=== PATIENT | female | born 1945 | race Caucasian/White ===

== ENCOUNTER → 2017-06-29 | Outpatient (CLI) | payer MEDICARE ==
[~2017-06-29] MED LIST: ACE500 PO; ATOR20TA22 PO; BECL8.7A6 IH; CHOL2000 PO; IBU200 PO; KET10 PO; NITR0.4T3 SL; OMEP-218 PO; PANT40TA65 PO; PER PO; RANI-324 PO; [UNRECOGNIZED DRUG - OTHER] PO
[2017-06-29 16:57] LABS: PLATELET COUNT, AUTOMATED 197 K/uL (150-450)
== END ==
LOC: LAB 16:33
PROVIDERS: ATTEND Surgery
DX: R10.9 Unspecified abdominal pain (principal)
CPT/HCPCS: 36415; 82040; 82247; 82310; 82374; 82435; 82565; 82947; 83690; 84075; 84132; 84155; 84295; 84450; 84460; 84520; 85025

== ENCOUNTER → 2017-07-20 | Outpatient (CLI) | payer MEDICARE ==
[~2017-07-20] MED LIST changes: +IOPAMIDOL 76% 75 ML INFUS BTL 75 ML ONE; +NS 0.9% 20 ML SDV 40 ML ONE
--- NOTE | 2017-07-20 09:49 | RADIOLOGY IMAGING REPORT ---
[place] [facility] [place] NAME: Donna Mcginnis : 1945 MR: [id number] V: [id number] EXAM DATE: ORDERING PHYSICIAN: WOODY BARRAGAN TECHNOLOGIST: Location: [facility] Patient: Donna Mcginnis : 1945 Visit/Account:[id number] Date of Sevice: 07/20/2017 ABDOMEN/PELVIS W/WO CONTRAST HISTORY: Point pain in right lower quadrant pain TECHNIQUE: Axial images acquired through the abdomen/pelvis both with and without IV contrast.. Bal nal and sagittal reformatting also performed. CONTRAST: 75 mL [id number] COMPARISON: July 30, 2009 FINDINGS: Visualized lung bases: Negative. Hepatobiliary: There are postsurgical changes from a cholecystectomy Spleen: Negative. Adrenals: Negative. Pancreas: Pancreatic divisum Kidneys ureters and bladder: Subcentimeter echodensities in both kidneys likely represent cysts altho ugh are too small to characterize. Again noted is cortical scarring lateral aspect of the mid left k idney with an adjacent calcified lesion that appears unchanged. There is no evidence of hydronephros is, hydroureter or urolithiasis. Urinary bladder is not ideally distended with contrast. The anteri or border the bladder are closely approximates the anterior pelvic wall although appears similar to t he prior study. Genitalia: Hysterectomy GI: There Is a focal narrowing in the distal sigmoid colon this is best seen on axial image 95 of se emery 6. Although this could represent an area of spasm and annular lesion cannot be totally excluded . There is diverticulosis left-sided colon although no CT evidence of acute diverticulitis. . Incidentally noted is a gastric diverticulum at the fundus Vessels/spaces/nodes: Negative. Bones/soft tissues: There are moderate spondylotic changes L5-S1 Additional findings: None pertinent. IMPRESSION: Subcentimeter hypodensities in both kidneys likely are present cysts although are too small to charac terize Cortical scarring mid left kidney with an adjacent calcified mass appears stable when compared to the prior study from July 30, 2009 No evidence of urolithiasis, hydronephrosis or hydroureter There is a focal narrowing in the distal sigmoid colon that is best seen on image 95 of series 6. Th is could represent an area of spasm although an annular lesion not totally excluded Diverticulosis left-sided colon although no CT evidence of acute diverticulitis Incidental gastric diverticulum Pancreatic divisum Post surgical changes from cholecystectomy and hysterectomy Report Dictated By: Lalitha Brunson MD at 07/20/2017 9:30 AM Report E-Signed By: Lalitha Brunson MD at 07/20/2017 9:43 AM WSN:[email or web address]
== END ==
LOC: CT 02:29
PROVIDERS: ATTEND Surgery
DX: N28.89 Other specified disorders of kidney and ureter (principal); K57.30 Diverticulosis of large intestine without perforation or abscess without bleeding; Z90.49 Acquired absence of other specified parts of digestive tract; Z90.710 Acquired absence of both cervix and uterus
CPT/HCPCS: 74178; J7050; Q9967

== ENCOUNTER → 2018-05-10 | Outpatient (CLI) | payer MEDICARE ==
[~2018-05-10] MED LIST changes: -IOPAMIDOL 76% 75 ML INFUS BTL 75 ML ONE; -NS 0.9% 20 ML SDV 40 ML ONE; -RANI-324 PO; +RANI-366 PO
[2018-05-10 15:52] LABS: PLATELET COUNT, AUTOMATED 231 K/uL (150-450)
[2018-05-10 16:05] LABS: LDL CHOLESTEROL 130 mg/dl
== END ==
LOC: LAB 15:34
PROVIDERS: ATTEND Nurse Practitioner Psychiatric/Mental Health
DX: E78.5 Hyperlipidemia, unspecified (principal); I10 Essential (primary) hypertension; R47.02 Dysphasia
CPT/HCPCS: 36415; 82040; 82247; 82310; 82374; 82435; 82465; 82565; 82947; 83718; 84075; 84132; 84155; 84295; 84443; 84450; 84460; 84478; 84520; 85025